=== PATIENT | female | born 1995 | race Caucasian/White ===

== ENCOUNTER 2019-09-27 00:12 | Emergency (ER) | payer MEDICAID, OTHER ==
--- NOTE | 2019-09-27 00:46 | EDM.PDOC ---
ED HPI GENERAL MEDICAL PROBLEM - General Chief Complaint: Diabetic Complaint Stated Complaint: SEIZURES Time Seen by Provider: 09/27/19 00:15 Source of Information: Reports: Patient, Family History Limitations: Reports: No Limitations - History of Present Illness Onset: Today, Sudden Onset Time: 22:00 Duration: Minutes: (1-2 min seizure in diabetic at 33 weeks gestation. BS in 60' s.) Associated Symptoms: Reports: No Other Symptoms Treatments [employer]: Reports: Aspirin, Juice - Related Data Allergies Allergy/AdvReac Type Severity Reaction Status Date / Time No Known Allergies Allergy Verified 09/27/19 00:59 Home Meds: Home Meds Aspirin 81 mg PO DAILY 09/27/19 [History] Enoxaparin Sodium [Lovenox] 40 mg SQ DAILY 09/27/19 [History] No122/Iron/Folic Acid [ Multi Tablet] 1 each PO DAILY 09/27/19 [History] ED ROS GENERAL - Review of Systems Review Of Systems: See Below Constitutional: Reports: No Symptoms HEENT: Reports: No Symptoms Respiratory: Reports: No Symptoms Cardiovascular: Reports: No Symptoms GI/Abdominal: Reports: No Symptoms : Reports: No Symptoms, Discharge, Dysuria, Frequency (Normal movement. No contractions or bleeding.) ED EXAM GENERAL NO PERIP PULSE - Physical Exam Exam: See Below Exam Limited By: No Limitations General Appearance: Alert, No Apparent Distress Throat/Mouth: Normal Inspection, Normal Oropharynx Respiratory/Chest: No Respiratory Distress, Lungs Clear Cardiovascular: Normal Peripheral Pulses, Regular Rate, Rhythm GI/Abdominal: Distended (gravid uterus. good fht with doppler) Course - Vital Signs Last Recorded V/S: Last Vital Signs Temp 36.6 C 09/27/19 00:12 Pulse 89 09/27/19 00:12 Resp 16 09/27/19 00:12 BP 122/81 09/27/19 00:12 Pulse Ox 100 09/27/19 00:12 - Orders/Labs/Meds Labs: Laboratory Tests 09/26/19 Range/Units 23:35 POC Glucose 80 (74-110) mg/dL Departure - Departure Time of Disposition: 00:45 Disposition: Home, Self-Care 01 Clinical Impression: Hypoglycemia - Discharge Information *PRESCRIPTION DRUG MONITORING PROGRAM REVIEWED*: Not Applicable (Should she develop contractions, decreased movement, vaginal bleeding she should immediately seek medical attention.) Instructions: Seizure, Adult, [id number] Referrals: PCP,None [Primary Care Provider] - Forms: ED Department Discharge Sepsis Event Note - Focused Exam Date Exam was Performed: 10/02/19 Time Exam was Performed: 16:05
== END 2019-09-27 01:05 | disposition home or self-care (01) ==
LOC: EDSEX → LB.ED 00:12
DX: O24.013 Pre-existing type 1 diabetes mellitus, in pregnancy, third trimester (principal); E10.649 Type 1 diabetes mellitus with hypoglycemia without coma; Z3A.33 33 weeks gestation of pregnancy
CPT/HCPCS: 82962; 99283; 99284